=== PATIENT | female | born 1935 | race Caucasian/White ===

== ENCOUNTER 2022-08-23 11:00 | Emergency (ER) | payer OTHER ==
[~2022-08-23] VITALS: Ht 177.8 cm; Wt 70.5 kg
[2022-08-23 11:35] VITALS: BP 184/68
[2022-08-23] MEDS ORDERED: ACET-3385 PO (12:07)
== END 2022-08-23 12:23 | disposition home or self-care (01) ==
LOC: EMS 11:06
DX: M25.562 Pain in left knee (principal); Z98.890 Other specified postprocedural states
CPT/HCPCS: 99282; Z7502